=== PATIENT | female | born 1985 | race Caucasian/White ===

== ENCOUNTER 2018-04-12 17:12 | Emergency (ER) | payer BC ==
[~2018-04-12] VITALS: Ht 162.6 cm; Wt 63.5 kg
[2018-04-12 17:18] VITALS: BP_SYST 127
[2018-04-12] MEDS ORDERED: LIDOCAINE 1% 10 MG/ML, 20 ML MDV INJ ONE (18:45)
[2018-04-12] MEDS ORDERED: LIDOCAINE JELLY 5 ML TUBE MM ONE (19:00)
[2018-04-12 19:13] VITALS: BP_SYST 119
== END 2018-04-12 19:13 | disposition home or self-care (01) ==
LOC: SED 17:12
DX: K64.5 Perianal venous thrombosis (principal)
CPT/HCPCS: 46083; 99284; J2001

== ENCOUNTER 2018-04-19 13:29 | Day surgery (SDC) | payer BC ==
[~2018-04-19] VITALS: Ht 162.6 cm; Wt 62.1 kg
[2018-04-19 14:09] LABS: BILIRUBIN,URINE NEGATIVE (NEGATIVE); BLOOD, URINE TRACE (NEGATIVE); CLARITY/URINE CLEAR (CLEAR); COLOR,URINE YELLOW (YELLOW); GLUCOSE,URINE NEGATIVE (NEGATIVE); KETONES,URINE NEGATIVE (NEGATIVE); LEUKOCYTE ESTERASE ,URINE 1+ (NEGATIVE); NITRITE, URINE NEGATIVE (NEGATIVE); PROTEIN URINE NEGATIVE (NEGATIVE); UROBILINOGEN,URINE 0.2 (0.2-1.0)
[2018-04-19 14:11] LABS: HEMOGLOBIN 12.9 g/dL (12.0-16.0); RED BLOOD CELL COUNT(AUTO) 4.34 MIL/uL (4.2-6.2); WHITE BLOOD COUNT (AUTO) 8.6 K/uL (4.8-10.8)
[2018-04-19 14:12] LABS: HEMATOCRIT 38.7 % (36-48); MEAN CORPUSCULAR HEMOGLOBIN 30 pg (27-31); MEAN CORPUSCULAR HGB CONC 33 % (32-36); MEAN CORPUSCULAR VOLUME 89 fL (79.0-98.0); NEUTROPHILS % (AUTO) 69.8 % (40.0-70.0); PLATELET COUNT (AUTO) 280 K/uL (130-430); RED CELL DISTRIBUTION WIDTH 11.8 % (9.0-15.0)
[2018-04-19 14:13] LABS: BASOPHILS % (AUTO) 0.3 % (0.0-2.0); EOSINOPHILS % (AUTO) 0.4 % (0.0-4.0); LYMPHOCYTES # (AUTO) 1.9 K/uL (1.0-5.5); MONOCYTES # (AUTO) 0.6 K/uL (0.0-1.0); MONOCYTES % (AUTO) 7.5 % (1.7-9.3)
[2018-04-19 14:22] LABS: BACTERIA,URINE FEW /HPF (None Seen)
[2018-04-19] MEDS ORDERED: BACITRACIN ZINC 15 GM TOPICAL OINTMENT TP ONE (15:50)
[2018-04-19] MEDS ORDERED: MIDAZOLAM HCL 5 MG/5 ML VIAL IVP ONE (15:50)
[2018-04-19] MEDS ORDERED: WATER FOR IRRIGATION,STERILE 1,000 ML IRRIG.SOLN IR ONE (15:50)
[2018-04-19] MEDS ORDERED: BUPIVACAINE LIPOSOME/PF 266 MG/20 ML VIAL INFIL ONE (15:50)
[2018-04-19 16:42] VITALS: BP_SYST 107
[2018-04-19] MEDS ORDERED: WITCH HAZEL LEAF 1 MED.PAD MED.PAD TP PRN (16:45)
[2018-04-19] MEDS ORDERED: DOCUSATE SODIUM 100 MG CAPSULE PO PRN (16:45)
[2018-04-19] MEDS ORDERED: HYDROCORTISONE 0.5%, 28.35 GM TOPICAL CREAM TP PRN (16:45)
[2018-04-19] MEDS ORDERED: HYDROcodone/ACETAMIN 5-325 MG TAB (NORCO/ VICODIN) PO PRN (16:45)
[2018-04-19] MEDS ORDERED: DERMOPLAST SPRAY TP PRN (16:45)
[2018-04-19] MEDS ORDERED: LR 1,000 ML IV SCH (17:13)
[2018-04-19] MEDS ORDERED: MIDAZOLAM HCL 5 MG/5 ML VIAL IVP PRN (17:15)
[2018-04-19] MEDS ORDERED: MIDAZOLAM HCL 5 MG/5 ML VIAL ONE (17:26)
[2018-04-19] MEDS ORDERED: TERBUTALINE SULFATE 1 MG/ML VIAL SUBCUT ONE (18:15)
[2018-04-19] MEDS ORDERED: TERBUTALINE SULFATE 1 MG/ML VIAL ONE (18:25)
[2018-04-19] MEDS ORDERED: TERBUTALINE SULFATE 1 MG/ML VIAL IVP PRN (18:45)
[2018-04-19] MEDS ORDERED: MORPHINE SULFATE 10 MG/ML VIAL IM ONE (19:30)
[2018-04-19] MEDS ORDERED: PROMETHAZINE HCL 25 MG/ML AMP IM ONE (19:30)
[2018-04-19] MEDS ORDERED: MORPHINE SULFATE 10 MG/ML VIAL ONE (20:43)
[2018-04-19] MEDS ORDERED: PROMETHAZINE HCL 25 MG/ML AMP ONE (20:43)
== END 2018-04-19 23:10 | disposition home or self-care (01) ==
LOC: SDS 13:29 → SPU 22:36 → SDS 23:10
PROVIDERS: ATTEND Specialist
DX: K64.5 Perianal venous thrombosis (principal); Z3A.34 34 weeks gestation of pregnancy
CPT/HCPCS: 36415; 46999; 81000; 85025; 88304; C9290; J2250; J2270; J2550; J3105

== ENCOUNTER 2021-06-28 14:03 | Observation (INO) | payer BC ==
[~2021-06-28] VITALS: Ht 162.6 cm; Wt 66.7 kg
[2021-06-28 16:02] LABS: BILIRUBIN,URINE NEGATIVE (NEGATIVE); BLOOD, URINE NEGATIVE (NEGATIVE); CLARITY/URINE CLOUDY (CLEAR); GLUCOSE,URINE NEGATIVE (NEGATIVE); KETONES,URINE NEGATIVE (NEGATIVE); LEUKOCYTE ESTERASE ,URINE NEGATIVE (NEGATIVE); NITRITE, URINE NEGATIVE (NEGATIVE); PH,URINE 7.5 (5.0-8.0); PROTEIN URINE NEGATIVE (NEGATIVE); UROBILINOGEN,URINE 0.2 (0.2-1.0)
[2021-06-28 16:06] LABS: COLOR,URINE STRAW (YELLOW)
[2021-06-28 16:10] LABS: BACTERIA,URINE MODERATE /HPF (None Seen); RBC,URINE NONE SEEN /HPF (0-3); WBC,URINE 0-3 /HPF (0-3)
[2021-06-28 16:11] LABS: MUCUS,URINE None Seen /LPF (None Seen)
[2021-06-28] MEDS ORDERED: NITROFURANTOIN MONOHYD/M-CRYST 100 MG CAPSULE (MacroBID) PO ONE (16:30)
== END 2021-06-28 16:48 | disposition home or self-care (01) ==
LOC: INTOOBSV 14:03 → SPU 14:03
PROVIDERS: ADMIT Specialist; ATTEND Specialist
DX: O62.9 Abnormality of forces of labor, unspecified (principal); O23.43 Unspecified infection of urinary tract in pregnancy, third trimester; Z3A.32 32 weeks gestation of pregnancy
CPT/HCPCS: 36415; 59025; 81000; 81002; 82731; 87086; G0378